=== PATIENT | female | born 1965 | race Caucasian/White ===

== ENCOUNTER 2016-09-30 10:53 | Emergency (ER) | payer OTHER ==
[2016-09-30 11:00] VITALS: BP 158/91; PULSE 66; TEMP 98; BMI 27.4
[2016-09-30 12:07] LABS: URINE APPEARANCE CLEAR; URINE BILIRUBIN NEGATIVE (NEGATIVE); URINE BLOOD NEGATIVE (NEGATIVE); URINE COLOR LTYELLOW; URINE GLUCOSE (UA) NEGATIVE (NEGATIVE); URINE KETONE NEGATIVE (NEGATIVE); URINE LEUK ESTERASE NEGATIVE (NEGATIVE); URINE NITRITE NEGATIVE (NEGATIVE); URINE PROTEIN NEGATIVE (NEGATIVE); URINE UROBILINOGEN NEGATIVE E.U./dl (0.2-1.0)
--- NOTE | 2016-09-30 12:25 | PDOC ---
History of Present Illness - General Chief Complaint: Headache Stated Complaint: EXPOSURE Time Seen by Provider: 09/30/16 11:30 History Source: Patient Exam Limitations: No Limitations - History of Present Illness Initial Comments: 09/30/16 12:20 CC intermit. COs of Headache, body aches, nasal congestion post possible pesticide exposure; daughter and son with similar symptoms; also notes lBP, Timing/Duration: intermittent, other (weeks) Severity: mild Associated Symptoms: reports: cough, fever/chills, headaches, malaise. denies: nausea/vomiting, rash, shortness of breath Past History - Past Medical History Allergies/Adverse Reactions: Allergies Allergy/AdvReac Type Severity Reaction Status Date / Time No Known Allergies Allergy Verified 09/30/16 10:57 Home Medications: Ambulatory Orders Thyroid [[place] Thyroid] 120 mg PO DAILY 09/30/16 Seizures: Yes Thyroid Disease: Yes - Surgical History Abdominal Surgery: Yes - Psycho/Social/Smoking Cessation Hx Anxiety: No Suicidal Ideation: No Smoking Status: Yes Smoking History: Never smoked Have you smoked in the past 12 months: No Number of Cigarettes Smoked Daily: 3 Hx Alcohol Use: No Drug/Substance Use Hx: No Substance Use Type: None Review of Systems - Review of Systems Constitutional: Yes: Malaise. No: Chills, Fever HEENTM: Yes: Nose Congestion Respiratory: No: Cough, Stridor, Wheezing Cardiac (ROS): No: Symptoms Reported ABD/GI: Yes: Nausea. No: Symptoms Reported, Diarrhea, Vomiting : No: Burning, Dysuria Musculoskeletal: Yes: Symptoms Reported Neurological: Yes: Headache. No: Symptoms reported, Numbness, Paresthesia, Tingling *Physical Exam - Vital Signs Last Vital Signs Temp Pulse Resp BP Pulse Ox 98 F 66 18 158/91 98 09/30/16 10:57 09/30/16 10:57 09/30/16 10:57 09/30/16 10:57 09/30/16 10:57 - Physical Exam General Appearance: Yes: Appropriately Dressed HEENT: positive: TMs Normal, Pharynx Normal, Nasal Congestion Neck: positive: Supple. negative: Rigid, Lymphadenopathy (R), Lymphadenopathy ( L) Respiratory/Chest: positive: Lungs Clear Cardiovascular: positive: Regular Rhythm, Regular Rate, Murmur ED Treatment Course - ADDITIONAL ORDERS Additional order review: Laboratory Results 09/30/16 11:59 Urine Color Ltyellow Urine Appearance Clear Urine pH 6.0 Ur Specific [place] 1.019 Urine Protein Negative Urine Glucose (UA) Negative Urine Ketones Negative Urine Blood Negative Urine Nitrite Negative Urine Bilirubin Negative Urine Urobilinogen Negative Ur Leukocyte Esterase Negative Urine HCG, Qual Negative Medical Decision Making - Medical Decision Making 09/30/16 12:23 spke with posions; who suggested no testing possible and referred to National pesticide hot line; will give to pt; also referred to LMd for HTN, has hx of same *DC/Admit/Observation/Transfer Diagnosis at time of Disposition: Malaise and fatigue - Discharge Dispostion Disposition: HOME Condition at time of disposition: Stable Admit: No - Patient Instructions Additional Instructions: please see local MD for elevated B/P; also contact poisons control as needed [phone]; also call pesticide hot line at
== END 2016-09-30 12:37 | disposition home or self-care (01) ==
LOC: SUPCPDRO 10:53 → JERFT 10:53
DX: R53.81 Other malaise (principal); I10 Essential (primary) hypertension; J30.89 Other allergic rhinitis
CPT/HCPCS: 81003; 84703; 99281-25

== ENCOUNTER 2017-01-25 16:14 | Emergency (ER) | payer OTHER ==
[2017-01-25 16:39] VITALS: BP 162/83; PULSE 100; TEMP 98.4; BMI 25.7
--- NOTE | 2017-01-25 17:54 | PDOC ---
History of Present Illness - General Chief Complaint: Non EmpBld/Body Flud Exposure Stated Complaint: TOXICATION Time Seen by Provider: 01/25/17 17:13 History Source: Patient Exam Limitations: No Limitations - History of Present Illness Initial Comments: 01/25/17 17:56 This is a 51yo woman with PMH HTN, hypothyroidism and seizures who presents today with multiple medical complaints including dizziness, nausea, SOB, vocal changes and alopecia. She states she has been having symptoms intermittently for approximately 4 years. 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 She states he has been poisoning her repeatedly by setting off pesticide fumigation bombs daily for 4 years until December 2016 when he started funneling pesticides into her apartment. In December she reports hearing a drilling sound in her apartment which she says was her super. She contacted the building load tallier at that time and was told "to mind my own business." She states the super has altered her cable and has tapped into her phone lines. She states others family members in her apartment have been exhibiting symptoms but have not had any evaluation. She reports she had contacted poison control and gave a list of pesticides used in her apartment and came today to have blood testing for 11 different organophosphate pesticides. She denies urinary incontinence, excessive salivation, excessive tearing, incontinence of stool or vomiting. All of her symptoms have resolved prior to evaluation. Pain- absent Occupation- homemaker Tobacco- denies ETOH- denies Illicits- denies Denies recent travel PMH:Mcgraw's palsy, HTN, hypothyroidism Timing/Duration: resolved prior to arrival Severity: mild Past History - Travel Traveled outside of the country in the last 30 days: No Close contact w/someone who was outside of country & ill: No - Past Medical History Allergies/Adverse Reactions: Allergies Allergy/AdvReac Type Severity Reaction Status Date / Time No Known Allergies Allergy Verified 01/25/17 16:31 Home Medications: Ambulatory Orders Thyroid [[place] Thyroid] 120 mg PO DAILY 09/30/16 Seizures: Yes Thyroid Disease: Yes - Surgical History Abdominal Surgery: Yes - Immunization History Immunization Up to Date: Yes - Psycho/Social/Smoking Cessation Hx Anxiety: No Suicidal Ideation: No Smoking Status: Yes Smoking History: Never smoked Have you smoked in the past 12 months: No Number of Cigarettes Smoked Daily: 3 Information on smoking cessation initiated: No Hx Alcohol Use: No Drug/Substance Use Hx: No Substance Use Type: None Review of Systems - Review of Systems Able to Perform ROS?: Yes Is the patient limited Romanian proficient: No Constitutional: Yes: See HPI HEENTM: No: Symptoms Reported Respiratory: Yes: See HPI Cardiac (ROS): No: Symptoms Reported ABD/GI: Yes: See HPI : No: Symptoms Reported Musculoskeletal: No: Symptoms Reported Integumentary: No: Symptoms Reported Neurological: Yes: Tremors *Physical Exam - Vital Signs Last Vital Signs Temp Pulse Resp BP Pulse Ox 98.4 F 100 H 20 162/83 100 01/25/17 16:15 01/25/17 16:15 01/25/17 16:15 01/25/17 16:15 01/25/17 16:15 - Physical Exam General Appearance: Yes: Appropriately Dressed. No: Apparent Distress HEENT: positive: EOMI, Normal ENT Inspection, Muffled/Hoarse voice (intermittent ) Neck: positive: Trachea midline, Supple. negative: Tender Respiratory/Chest: positive: Lungs Clear, Normal Breath Sounds. negative: Chest Tender, Respiratory Distress, Accessory Muscle Use Cardiovascular: positive: Regular Rhythm, S1, S2, Tachycardia. negative: Edema , JVD, Murmur Gastrointestinal/Abdominal: positive: Normal Bowel Sounds, Soft. negative: Tender, Organomegaly Musculoskeletal: positive: Normal Inspection. negative: CVA Tenderness Extremity: positive: Normal Capillary Refill, Normal Inspection, Normal Range of Motion Integumentary: positive: Normal Color, Dry, Warm Neurologic: positive: Fully Oriented, Alert, Normal Mood/Affect, Normal Response , Motor Strength 5/5, Abnormal Cranial NS (CNii-iv and vi-xii intact. Left sided bells present.) ED Treatment Course - LABORATORY CBC & Chemistry Diagram: 01/25/17 17:13 01/25/17 17:13 Medical Decision Making - Medical Decision Making 01/25/17 18:09 This is a 51yo woman with PMH HTN, hypothyroidism and seizures who presents today with multiple medical complaints including dizziness, nausea, SOB, vocal changes and alopecia. She states she has been having symptoms intermittently for approximately 4 years. 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 She states he has been poisoning her repeatedly by setting off pesticide fumigation bombs daily for 4 years until December 2016 when he started funneling pesticides into her apartment. In December she reports hearing a drilling sound in her apartment which she says was her super. She contacted the building load tallier at that time and was told "to mind my own business." She states the super has altered her cable and has tapped into her phone lines. She states others family members in her apartment have been exhibiting symptoms but have not had any evaluation. She reports she had contacted poison control and gave a list of pesticides used in her apartment and came today to have blood testing for 11 different organophosphate pesticides. She denies urinary incontinence, excessive salivation, excessive tearing, incontinence of stool or vomiting. All of her symptoms have resolved prior to evaluation. The patient takes [place] Thyroid natural supplement for her hypothyroidism. Has taken synthroid in the past but self d/c'd. She was evaluated here in September for similar complaint. Long discussion had with patient regarding possibility of acute undiagnosed mental illness. Patient is agreeable to have evaluation by psychiatry as an outpatient if lab testing is negative. DDX- hyperthyroidism vs ?delusional disorder? - CBC, CMP, TSH - UA - f/u with Dr. Ward 01/25/17 19:42 Lab testing notable for WBC-15.1. No s/s infection, likely stress reaction. All testing discussed with patient. agrees with plan. Will discharge home with psych f/u. *DC/Admit/Observation/Transfer Diagnosis at time of Disposition: Mcgraw palsy - Discharge Dispostion Admit: No - Referrals Referrals: Ashleigh Barrett MD [Primary Care Provider] - Kimberly Ward MD [Staff Physician] - - Patient Instructions Additional Instructions: Drink plenty of fluids. Keep windows open to allow fresh air into house. Make an appointment with Dr. Ward within 1 week. Return to ER for worsening symptoms or any other concerns. - Post Discharge Activity
[2017-01-25 18:11] LABS: BASOPHIL 0.3 % (0-2.0); MCH 29.6 pg (25.7-33.7); MCHC 33.4 g/dl (32.0-36.0); MEAN CELL VOLUME 88.5 fl (80-96); MEAN PLT VOLUME 8.5 fl (7.5-11.1); NEUTROPHILS 85.1 % (42.8-82.8); PLATELET COUNT 291 K/MM3 (134-434); RDW 13.8 % (11.6-15.6)
[2017-01-25 18:13] LABS: URINE APPEARANCE SLCLOUDY; URINE BILIRUBIN NEGATIVE (NEGATIVE); URINE BLOOD NEGATIVE (NEGATIVE); URINE COLOR DKYELLOW; URINE GLUCOSE (UA) NEGATIVE (NEGATIVE); URINE KETONE NEGATIVE (NEGATIVE); URINE LEUK ESTERASE NEGATIVE (NEGATIVE); URINE NITRITE NEGATIVE (NEGATIVE); URINE PROTEIN NEGATIVE (NEGATIVE); URINE UROBILINOGEN NEGATIVE mg/dL (0.2-1.0)
[2017-01-25 19:15] LABS: ALBUMIN 4.1 g/dl (3.4-5.0); ALK PHOS 69 U/L (45-117); ANION GAP 9 (8-16); BILIRUBIN,TOTAL 0.3 mg/dL (0.2-1.0); CO2 25 mmol/L (21-32); CREATININE 0.8 mg/dL (0.55-1.02); GLUCOSE,RANDOM 102 mg/dL (74-106); SGPT/ALT 16 U/L (12-78); TOT PROT 7.8 g/dl (6.4-8.2)
[2017-01-25 19:23] LABS: THYROID STIMULATING HORMONE 0.81 uIU/ml (0.358-3.74)
[2017-01-25 19:29] LABS: SGOT/AST < 3 U/L (15-37)
== END 2017-01-25 19:53 | disposition home or self-care (01) ==
LOC: JERFT 16:14
DX: G51.0 Bell's palsy (principal); I10 Essential (primary) hypertension; E03.9 Hypothyroidism, unspecified
CPT/HCPCS: 36415; 80053; 81003; 84443; 85025; 99281-25

== ENCOUNTER 2019-08-03 23:19 | Emergency (ER) | payer OTHER ==
[2019-08-03 23:25] VITALS: BP 115/86; PULSE 71; TEMP 97.9; BMI 27.4
--- NOTE | 2019-08-04 00:08 | PDOC ---
History of Present Illness - General Chief Complaint: Injury Stated Complaint: RT WRIST PAIN History Source: Patient Exam Limitations: No Limitations - History of Present Illness Initial Comments: 08/04/19 00:06 Patient is a 53 year old female with hypothyroid, c/s, left ear surg for Hearing loss c/o right hand and wrist pain since 1 week. States that she has a big dog who she took out side for exercise. The dog came running at her, she put her right hand out to block him from pushing her down when he ran into her hand, and hyperextended the wrist. States that over the week it got black and blue and she has had pain with movement. She did not seek out care at that time, thinking that her symptoms would go away. States that tonight she bumped the arm into the furniture and the pain got worse and so has come to the emergency room for evaluation. Pain is 8/10 sharp and worse with movement of the thumb. Patient is right-hand dominant. PMD: Dr. Jones PMHX: as above PSOCHX: neg etoh, drug, cig ALL: NKDA GENERAL/CONSTITUTIONAL: [No fever or chills. No weakness. No weight change.] HEAD, EYES, EARS, NOSE AND THROAT: [No change in vision. No ear pain or discharge. No sore throat.] CARDIOVASCULAR: [No chest pain or shortness of breath.] RESPIRATORY: [No cough, wheezing, or hemoptysis.] GASTROINTESTINAL: [No nausea, vomiting, diarrhea or constipation. No rectal bleeding.] GENITOURINARY: [No dysuria, frequency, or change in urination.] MUSCULOSKELETAL: [(+) joint or muscle swelling or pain. No neck or back pain.] SKIN AND BREASTS: [No rash or easy bruising.] NEUROLOGIC: [No headache, vertigo, loss of consciousness, or loss of sensation.] PSYCHIATRIC: [No depression or anxiety.] ENDOCRINE: [No increased thirst. No abnormal weight change.] HEMATOLOGIC/LYMPHATIC: [No anemia, easy bleeding, or history of blood clots.] ALLERGIC/IMMUNOLOGIC: [No hives or skin allergy. No latex allergy.] GENERAL: [The patient is awake, alert, and fully oriented, in no acute distress.] HEAD: [Normal with no signs of trauma.] EYES: [Pupils equal, round and reactive to light, extraocular movements intact, sclera anicteric, conjunctiva clear.] ENT: [Ears normal, nares patent, oropharynx clear without exudates. Moist mucous membranes.] NECK: [Normal range of motion, supple without lymphadenopathy, JVD, or masses.] LUNGS: [Breath sounds equal, clear to auscultation bilaterally. No wheezes, and no crackles.] HEART: [Regular rate and rhythm, normal S1 and S2 without murmur, rub.] ABDOMEN: [Soft, nontender, normoactive bowel sounds. No guarding, no rebound. No masses.] EXTREMITIES: [Decreased range of motion of the wrist and thumb right, tenderness in the anatomical snuffbox, mild swelling over the radial aspect of the wrist No clubbing or cyanosis. No cords, ] NEUROLOGICAL: [Cranial nerves II through XII grossly intact. Normal speech, normal gait.] PSYCH: [Normal mood, normal affect.] SKIN: [Warm, Dry, normal turgor, no rashes or lesions noted.] Past History - Past Medical History Allergies/Adverse Reactions: Allergies Allergy/AdvReac Type Severity Reaction Status Date / Time No Known Allergies Allergy Verified 08/03/19 23:22 Home Medications: Ambulatory Orders Thyroid [[place] Thyroid] 120 mg PO DAILY 09/30/16 COPD: No Seizures: Yes Thyroid Disease: Yes Other medical history: BELLS PALSY, HYPOTHYROID - Surgical History Abdominal Surgery: Yes - Immunization History Immunization Up to Date: Yes - Psycho Social/Smoking Cessation Hx Smoking Status: Yes Smoking History: Never smoked Have you smoked in the past 12 months: No Number of Cigarettes Smoked Daily: 3 Hx Alcohol Use: No Drug/Substance Use Hx: No Substance Use Type: None *Physical Exam - Vital Signs Last Vital Signs Temp Pulse Resp BP Pulse Ox 97.9 F 71 20 115/86 100 08/03/19 23:23 08/03/19 23:23 08/03/19 23:23 08/03/19 23:23 08/03/19 23:23 Medical Decision Making - Medical Decision Making 08/04/19 00:06 Patient is a 53 year old female with hypothyroid, c/s, left ear surg for Hearing loss c/o right hand and wrist pain since 1 week. States that she has a big dog who she took out side for exercise. The dog came running at her, she put her right hand out to block him from pushing her down when he ran into her hand, and hyperextended the wrist. States that over the week it got black and blue and she has had pain with movement. She did not seek out care at that time, veronica callahan that her symptoms would go away. States that tonight she bumped the arm into the furniture and the pain got worse and so has come to the emergency room for evaluation. Pain is 8/10 sharp and worse with movement of the thumb. Patient is right-hand dominant. Symptoms consistent with wrist sprain/strain rule out fracture. X-rays are negative no fracture seen. Since patient is tender in the anatomical snuffbox will place a thumb spica splint. Ortho referral. I discussed the physical exam findings, ancillary test results and final diagnoses with the patient. I answered all of the patient's questions. The patient was satisfied with the care received and felt comfortable with the discharge plan and treatment plan. The Patient agrees to follow up with the primary care physician within 24-72 hours. Discharge - Discharge Information Problems reviewed: Yes Clinical Impression/Diagnosis: Wrist strain Qualifiers: Encounter type: initial encounter Laterality: right Qualified Code(s): S66.911A - Strain of unspecified muscle, fascia and tendon at wrist and hand level, right hand, initial encounter Condition: Stable Disposition: HOME - Follow up/Referral Referrals: Faviola Jones MD [Primary Care Provider] - Jarocho Mahoney DO [Staff Physician] - Kee Sawyer MD [Staff Physician] - Zach Velasquez MD [Staff Physician] - - Patient Discharge Instructions Patient Printed Discharge Instructions: DI for Wrist Strain Additional Instructions: Your Discharge Instructions: You must call primary care physician within 24 hours to arrange follow-up. Return to the Emergency Department with any new, persistent or worsening symptoms, for fever, chills, SOB, dizziness or any other concerning changes that may occur. You must follow-up with orthopedist. We have given you a couple names call to see who takes your insurance. - Post Discharge Activity
[2019-08-04] MEDS ORDERED: KETOROLAC TROMETHAMINE 30 MG/1 ML VIAL IM ONE (00:41)
[2019-08-04] MEDS ORDERED: KETOROLAC TROMETHAMINE 30 MG/1 ML VIAL ONE (01:05)
== END 2019-08-04 01:20 | disposition home or self-care (01) ==
LOC: JER 23:19
PROC: 3E0233Z Introduction of Anti-inflammatory into Muscle, Percutaneous Approach (ICD-10-PCS; principal; 2019-08-03)
DX: S66.811A Strain of other specified muscles, fascia and tendons at wrist and hand level, right hand, initial encounter (principal); W18.39XA Other fall on same level, initial encounter; W22.03XA Walked into furniture, initial encounter; Y93.K1 Activity, walking an animal; Y92.89 Other specified places as the place of occurrence of the external cause; Y99.8 Other external cause status; E03.9 Hypothyroidism, unspecified; Z86.69 Personal history of other diseases of the nervous system and sense organs
CPT/HCPCS: 73090-TC-RT-FY; 73130-TC-RT-FY; 96372; 99284-25

== ENCOUNTER 2021-02-17 14:24 | Emergency (ER) | payer OTHER ==
[2021-02-17 14:42] VITALS: BP 146/83; PULSE 80; TEMP 98.3; BMI 22.6
== END 2021-02-17 15:38 | disposition home or self-care (01) ==
LOC: JERFT 14:24
DX: M25.531 Pain in right wrist (principal)
CPT/HCPCS: 73110-TC-RT-FY; 99284-25

== ENCOUNTER 2021-05-18 16:48 | Emergency (ER) | payer OTHER ==
[2021-05-18 17:13] VITALS: BP 150/83; PULSE 77; TEMP 98.2; BMI 24.4
[2021-05-18] MEDS ORDERED: KETOROLAC TROMETHAMINE 30 MG/1 ML VIAL IM ONE (18:17)
[2021-05-18] MEDS ORDERED: CYCLOBENZAPRINE HCL 10 MG TABLET (FP) PO ONE (18:17)
[2021-05-18] MEDS ORDERED: CYCLOBENZAPRINE HCL 10 MG TABLET (FP) ONE (18:21)
[2021-05-18] MEDS ORDERED: KETOROLAC TROMETHAMINE 30 MG/1 ML VIAL ONE (18:21)
== END 2021-05-18 22:24 | disposition home or self-care (01) ==
LOC: JERFT 16:48
PROC: 3E0233Z Introduction of Anti-inflammatory into Muscle, Percutaneous Approach (ICD-10-PCS; principal; 2021-05-18)
DX: M54.50 Low back pain, unspecified (principal); M54.6 Pain in thoracic spine; V43.53XA Car driver injured in collision with pick-up truck in traffic accident, initial encounter
CPT/HCPCS: 72050-TC-FY; 72100-TC-FY; 99284-25

== ENCOUNTER 2021-06-10 18:10 | Inpatient (IN) | payer OTHER ==
[2021-06-10 18:30] VITALS: TEMP 98.1; BMI 28.3
[2021-06-10 20:49] LABS: INR 1.3 (0.83-1.09)
[2021-06-10 21:17] LABS: URINE APPEARANCE CLEAR; URINE BILIRUBIN NEGATIVE (NEGATIVE); URINE COLOR YELLOW; URINE GLUCOSE (UA) NEGATIVE (NEGATIVE); URINE KETONE NEGATIVE (NEGATIVE); URINE LEUK ESTERASE NEGATIVE (NEGATIVE); URINE NITRITE NEGATIVE (NEGATIVE); URINE PROTEIN NEGATIVE (NEGATIVE)
[2021-06-10 21:21] LABS: ALBUMIN 4.4 g/dl (3.4-5.0); BILIRUBIN,TOTAL 0.5 mg/dL (0.2-1); BLOOD UREA NITROGEN 22.2 mg/dL (7-18); CALCIUM 9.2 mg/dL (8.5-10.1); CREATININE 0.7 mg/dL (0.55-1.3); TOT PROT 8.4 g/dl (6.4-8.2)
[2021-06-10 21:24] LABS: BASO % 0.3 % (0-2.0); EOS % 0.7 % (0-4.5); HEMATOCRIT 42.8 % (32.4-45.2); HEMOGLOBIN 14.4 GM/dL (10.7-15.3); LYMPH % 43.5 % (8-40); MCH 29.5 pg (25.7-33.7); MCHC 33.7 g/dl (32.0-36.0); MEAN CELL VOLUME 87.7 fl (80-96); MEAN PLT VOLUME 8.1 fl (7.5-11.1); MONO % 5.4 % (3.8-10.2); NEUT % 50.1 % (42.8-82.8); PLATELET COUNT 255 10^3/uL (134-434); RBC 4.88 M/mm3 (3.60-5.2); RDW 14.3 % (11.6-15.6); WHITE BLOOD COUNT 6.7 K/mm3 (4.0-10.0)
[2021-06-10 21:28] LABS: COCAINE, UR NEGATIVE (NEGATIVE); OPIATES, URI NEGATIVE (NEGATIVE); URINE BARBITURATES NEGATIVE (NEGATIVE)
[2021-06-10] MEDS ORDERED: POTASSIUM CHLORIDE ORAL LIQUID 20 MEQ/15 ML PO ONE (21:29)
[2021-06-10 21:32] LABS: PHENCYCLIDINE,URINE NEGATIVE (NEGATIVE)
[2021-06-10 21:53] LABS: METHADONE, UR NEGATIVE (NEGATIVE); URINE AMPHETAMINES NEGATIVE (NEGATIVE); URINE BENZODIAZEPINES NEGATIVE (NEGATIVE)
[2021-06-10] MEDS ORDERED: POTASSIUM CHLORIDE ORAL LIQUID 20 MEQ/15 ML ONE (22:04)
[2021-06-10] MEDS ORDERED: ONDANSETRON 4 MG/2 ML VIAL IVPUSH ONE (22:10)
[2021-06-10] MEDS ORDERED: SODIUM CHLORIDE 0.9% 500 ML INFUS.BAG IV ONE (22:11)
[2021-06-10] MEDS ORDERED: ONDANSETRON 4 MG/2 ML VIAL ONE (22:12)
[2021-06-11] MEDS ORDERED: SODIUM CHLORIDE 1,000 ML IV SCH (01:00)
[2021-06-11 06:56] VITALS: BP 122/61; PULSE 62
[2021-06-11] MEDS ORDERED: THYROID 60 MG TABLET PO SCH (07:00)
[2021-06-11] MEDS ORDERED: ENOXAPARIN NA (PORCINE) 40 MG/0.4 ML DISP.SYRIN SQ ONE (09:17)
[2021-06-11] MEDS ORDERED: ENOXAPARIN NA (PORCINE) 40 MG/0.4 ML DISP.SYRIN SQ SCH (10:00)
[2021-06-11 11:09] LABS: BASO % 0.6 % (0-2.0); EOS % 1.2 % (0-4.5); HEMATOCRIT 37.1 % (32.4-45.2); HEMOGLOBIN 12.6 GM/dL (10.7-15.3); LYMPH % 49.9 % (8-40); MCH 29.9 pg (25.7-33.7); MCHC 33.9 g/dl (32.0-36.0); MEAN CELL VOLUME 88.2 fl (80-96); MEAN PLT VOLUME 8.3 fl (7.5-11.1); MONO % 7.4 % (3.8-10.2); NEUT % 40.9 % (42.8-82.8); PLATELET COUNT 222 10^3/uL (134-434); RBC 4.21 M/mm3 (3.60-5.2); RDW 14.1 % (11.6-15.6); WHITE BLOOD COUNT 5.7 K/mm3 (4.0-10.0)
[2021-06-11 11:16] LABS: CALCIUM 8.3 mg/dL (8.5-10.1)
[2021-06-11 11:20] LABS: CREATININE 0.7 mg/dL (0.55-1.3)
[2021-06-11 11:33] LABS: BILIRUBIN,TOTAL 0.3 mg/dL (0.2-1)
[2021-06-11 11:34] LABS: TOT PROT 6.7 g/dl (6.4-8.2)
[2021-06-11 11:35] LABS: ALBUMIN 3.5 g/dl (3.4-5.0)
[2021-06-11] MEDS ORDERED: POTASSIUM CHLORIDE TABS 20 MEQ TABLET.ER (FP) PO ONE (14:06)
[2021-06-11 14:39] LABS: MAGNESIUM 2.2 mg/dL (1.8-2.4)
[2021-08-01 11:05] LABS: LEAD/CREAT RATIO 1; MERCURY/CREAT RATIO 1
== END 2021-06-11 17:08 | disposition left against medical advice (07) | DRG 201 ==
LOC: JER 18:10 → MERGE 22:43 → OBSVTOIN 22:43 → JERBED 22:43
PROVIDERS: ADMIT Hospitalist
DX: I47.2 Ventricular tachycardia (principal); F22 Delusional disorders; I10 Essential (primary) hypertension; E03.9 Hypothyroidism, unspecified; R94.31 Abnormal electrocardiogram [ECG] [EKG]; E87.6 Hypokalemia; E83.51 Hypocalcemia; F12.90 Cannabis use, unspecified, uncomplicated
CPT/HCPCS: 36415; 71046-TC-FY; 80053; 80307; 81003; 82175; 82300; 82550; 82607; 82746; 83018; 83655; 83690; 83735; 83825; 84436; 84439; 84443; 84484; 85025; 85610; 93005; 93010; 99285-25; C9803-CS; U0003; U0005

== ENCOUNTER 2021-07-12 06:05 | Emergency (ER) | payer OTHER ==
[2021-07-12 06:18] VITALS: TEMP 97.6; BMI 23.9
[2021-07-12 08:08] VITALS: BP 154/95; PULSE 72
[2021-07-12] MEDS ORDERED: FAMOTIDINE 20 MG/50 ML IVPB 20 MG/50 ML MG IVPB ONE ×2 (08:10→08:23)
[2021-07-12] MEDS ORDERED: MAG HYDROX/AL HYDROX/SIMETH -MYLANTA- ORAL SUSPENSION PO ONE (08:10)
[2021-07-12] MEDS ORDERED: SODIUM CHLORIDE 0.9% 500 ML INFUS.BAG IV ONE (08:17)
[2021-07-12] MEDS ORDERED: MAG HYDROX/AL HYDROX/SIMETH 30 ML UNIT-DOSE CUP ONE (08:22)
[2021-07-12 08:57] LABS: BASO % 0.3 % (0-2.0); EOS % 1.4 % (0-4.5); HEMATOCRIT 38.8 % (32.4-45.2); HEMOGLOBIN 13.3 GM/dL (10.7-15.3); LYMPH % 44.6 % (8-40); MCH 29.9 pg (25.7-33.7); MCHC 34.3 g/dl (32.0-36.0); MEAN CELL VOLUME 87.3 fl (80-96); MEAN PLT VOLUME 7.8 fl (7.5-11.1); NEUT % 47.7 % (42.8-82.8); PLATELET COUNT 258 10^3/uL (134-434); RBC 4.44 M/mm3 (3.60-5.2); RDW 13.6 % (11.6-15.6); WHITE BLOOD COUNT 5.4 K/mm3 (4.0-10.0)
[2021-07-12 09:19] LABS: CALCIUM 8.9 mg/dL (8.5-10.1); CHLORIDE 105 mmol/L (98-107); SODIUM 139 mmol/L (136-145)
[2021-07-12 09:21] LABS: ALBUMIN 3.8 g/dl (3.4-5.0); ANION GAP 6 MMOL/L (8-16); BLOOD UREA NITROGEN 16.8 mg/dL (7-18); CO2 27 mmol/L (21-32); GLUCOSE,RANDOM 108 mg/dL (74-106); LIPASE 152 U/L (73-393)
[2021-07-12 09:23] LABS: CREATININE 0.6 mg/dL (0.55-1.3); SGOT/AST 11 U/L (15-37); SGPT/ALT 15 U/L (13-61)
[2021-07-12 09:24] LABS: BILIRUBIN,TOTAL 0.2 mg/dL (0.2-1)
[2021-07-12 09:25] LABS: TOT PROT 7.3 g/dl (6.4-8.2)
[2021-07-12 09:27] LABS: ALK PHOS 68 U/L (45-117)
[2021-07-12 09:28] LABS: EPI CELLS 18 /uL (0-25.1); HYALINE CASTS 0 /uL (0-3.1); URINE APPEARANCE CLEAR; URINE BACTERIA 425 /uL (0-1359); URINE BILIRUBIN NEGATIVE (NEGATIVE); URINE COLOR YELLOW; URINE GLUCOSE (UA) NEGATIVE (NEGATIVE); URINE KETONE NEGATIVE (NEGATIVE); URINE LEUK ESTERASE 2+ (NEGATIVE); URINE NITRITE NEGATIVE (NEGATIVE); URINE PROTEIN NEGATIVE (NEGATIVE); URINE RBC 12 /uL (0-23.9); URINE UROBILINOGEN 0.2 mg/dL (0.2-1.0); URINE WBC 36 /uL (0-25.8)
== END 2021-07-12 12:00 | disposition home or self-care (01) ==
LOC: JER 06:05
PROC: 3E033NZ Introduction of Analgesics, Hypnotics, Sedatives into Peripheral Vein, Percutaneous Approach (ICD-10-PCS; principal; 2021-07-12)
DX: R10.84 Generalized abdominal pain (principal); R19.7 Diarrhea, unspecified
CPT/HCPCS: 36415; 71046-TC-FY; 80053; 81003; 82550; 83690; 84484; 85025; 87086; 87807; 93005; 93010; 96365; 99284-25; C9803; U0003; U0005

== ENCOUNTER 2021-09-15 08:23 | Emergency (ER) | payer OTHER ==
[2021-09-15 08:35] VITALS: BP 134/76; PULSE 74; TEMP 97.6; BMI 24.7
[2021-09-15 09:59] LABS: BASO % 0.3 % (0-2.0); HEMATOCRIT 39.5 % (32.4-45.2); HEMOGLOBIN 13.1 GM/dL (10.7-15.3); LYMPH % 35.9 % (8-40); MCHC 33.1 g/dl (32.0-36.0); MEAN CELL VOLUME 87.7 fl (80-96); MEAN PLT VOLUME 8.2 fl (7.5-11.1); MONO % 5.9 % (3.8-10.2); NEUT % 56.9 % (42.8-82.8); PLATELET COUNT 262 10^3/uL (134-434); RDW 13.6 % (11.6-15.6); WHITE BLOOD COUNT 5.5 K/mm3 (4.0-10.0)
[2021-09-15 10:28] LABS: ALBUMIN 3.8 g/dl (3.4-5.0); BLOOD UREA NITROGEN 15.5 mg/dL (7-18); CALCIUM 9.3 mg/dL (8.5-10.1)
[2021-09-15 10:31] LABS: CREATININE 0.7 mg/dL (0.55-1.3)
[2021-09-15 10:33] LABS: BILIRUBIN,TOTAL 0.4 mg/dL (0.2-1); TOT PROT 7.5 g/dl (6.4-8.2)
[2021-09-15 12:01] LABS: URINE APPEARANCE CLEAR; URINE BILIRUBIN NEGATIVE (NEGATIVE); URINE COLOR YELLOW; URINE GLUCOSE (UA) NEGATIVE (NEGATIVE); URINE KETONE NEGATIVE (NEGATIVE); URINE LEUK ESTERASE NEGATIVE (NEGATIVE); URINE NITRITE NEGATIVE (NEGATIVE); URINE PROTEIN NEGATIVE (NEGATIVE); URINE UROBILINOGEN 0.2 mg/dL (0.2-1.0)
[2021-09-15 12:20] LABS: COCAINE, UR NEGATIVE (NEGATIVE); OPIATES, URI NEGATIVE (NEGATIVE)
[2021-09-15 12:21] LABS: METHADONE, UR NEGATIVE (NEGATIVE); PHENCYCLIDINE,URINE NEGATIVE (NEGATIVE); URINE BARBITURATES NEGATIVE (NEGATIVE); URINE BENZODIAZEPINES NEGATIVE (NEGATIVE)
[2021-09-15 12:27] LABS: URINE AMPHETAMINES NEGATIVE (NEGATIVE)
== END 2021-09-15 11:49 | disposition home or self-care (01) ==
LOC: JER 08:23
DX: F41.9 Anxiety disorder, unspecified (principal)
CPT/HCPCS: 36415; 80053; 80307; 81003; 82550; 84443; 85025; 87086; 93005; 93010; 99284-25

== ENCOUNTER 2022-02-23 11:03 | Emergency (ER) | payer OTHER ==
[2022-02-23 11:26] VITALS: TEMP 98; BMI 26.5
[2022-02-23] MEDS ORDERED: SODIUM CHLORIDE 0.9% 500 ML INFUS.BAG IV ONE (12:36)
[2022-02-23] MEDS ORDERED: FAMOTIDINE 20 MG/50 ML IVPB 20 MG/50 ML MG IVPB ONE (12:36)
[2022-02-23] MEDS ORDERED: MAG HYDROX/AL HYDROX/SIMETH 30 ML UNIT-DOSE CUP PO ONE (12:36)
[2022-02-23] MEDS ORDERED: MAG HYDROX/AL HYDROX/SIMETH 30 ML UNIT-DOSE CUP ONE (13:49)
[2022-02-23] MEDS ORDERED: FAMOTIDINE 10 MG/ML VIAL IVPB ONE (13:50)
[2022-02-23 15:07] LABS: URINE APPEARANCE CLEAR; URINE BILIRUBIN NEGATIVE (NEGATIVE); URINE COLOR YELLOW; URINE GLUCOSE (UA) NEGATIVE (NEGATIVE); URINE KETONE NEGATIVE (NEGATIVE); URINE LEUK ESTERASE NEGATIVE (NEGATIVE); URINE NITRITE NEGATIVE (NEGATIVE); URINE PROTEIN NEGATIVE (NEGATIVE); URINE UROBILINOGEN 0.2 mg/dL (0.2-1.0)
[2022-02-23 15:55] LABS: BASO % 0.4 % (0-2.0); EOS % 0.4 % (0-4.5); HEMATOCRIT 42.4 % (32.4-45.2); HEMOGLOBIN 14.5 GM/dL (10.7-15.3); LYMPH % 23.2 % (8-40); MCH 30.5 pg (25.7-33.7); MCHC 34.1 g/dl (32.0-36.0); MEAN CELL VOLUME 89.4 fl (80-96); MEAN PLT VOLUME 9.6 fl (7.5-11.1); MONO % 4.4 % (3.8-10.2); NEUT % 71.6 % (42.8-82.8); PLATELET COUNT 256 10^3/uL (134-434); RBC 4.74 M/mm3 (3.60-5.2); WHITE BLOOD COUNT 8.6 K/mm3 (4.0-10.0)
[2022-02-23 16:01] LABS: INR 1.21 (0.83-1.09)
[2022-02-23 16:03] LABS: ACTIVATED PTT 34.1 SECONDS (25.2-36.5)
[2022-02-23 16:23] LABS: CHLORIDE 104 mmol/L (98-107); SODIUM 135 mmol/L (136-145)
[2022-02-23 16:26] LABS: ALBUMIN 4.1 g/dl (3.4-5.0); BLOOD UREA NITROGEN 15.2 mg/dL (7-18); CALCIUM 8.9 mg/dL (8.5-10.1); CO2 24 mmol/L (21-32); GLUCOSE,RANDOM 89 mg/dL (74-106); LIPASE 78 U/L (73-393)
[2022-02-23 16:29] LABS: CREATININE 0.7 mg/dL (0.55-1.3)
[2022-02-23 16:30] LABS: BILIRUBIN,TOTAL 0.5 mg/dL (0.2-1)
[2022-02-23 16:31] LABS: TOT PROT 8.8 g/dl (6.4-8.2)
[2022-02-23 16:32] LABS: ALK PHOS 81 U/L (45-117)
[2022-02-23 16:48] LABS: ANION GAP 6 MMOL/L (8-16); SGOT/AST 74 U/L (15-37); SGPT/ALT 24 U/L (13-61)
[2022-02-23] MEDS ORDERED: ASPIRIN 325 MG TABLET PO ONE (18:16)
[2022-02-23] MEDS ORDERED: ASPIRIN 81 MG CHEWABLE TABLETS PO ONE (18:23)
[2022-02-23] MEDS ORDERED: ASPIRIN 325 MG TABLET ONE (18:35)
[2022-02-23 20:34] VITALS: BP 150/89; PULSE 97; RESP 20
== END 2022-02-23 21:13 | disposition left against medical advice (07) ==
LOC: JER 11:03
PROC: 3E033NZ Introduction of Analgesics, Hypnotics, Sedatives into Peripheral Vein, Percutaneous Approach (ICD-10-PCS; principal; 2022-02-23)
DX: R79.1 Abnormal coagulation profile (principal); R07.9 Chest pain, unspecified
CPT/HCPCS: 36415; 71046-TC-FY; 80053; 80307; 81003; 83690; 84132; 84439; 84443; 84484; 85025; 85610; 85730; 93005; 93010; 99284-25; C9803-CS; U0003; U0005

== ENCOUNTER 2022-04-22 10:37 | Emergency (ER) | payer OTHER ==
[2022-04-22 10:45] VITALS: TEMP 97.9; BMI 27.8
[2022-04-22] MEDS ORDERED: MAG HYDROX/AL HYDROX/SIMETH -MYLANTA- ORAL SUSPENSION PO ONE (11:25)
[2022-04-22] MEDS ORDERED: FAMOTIDINE 20 MG/50 ML IVPB 20 MG/50 ML MG IVPB ONE ×2 (11:25→11:30)
[2022-04-22] MEDS ORDERED: MAG HYDROX/AL HYDROX/SIMETH 30 ML UNIT-DOSE CUP ONE (11:30)
[2022-04-22 12:03] LABS: BASO % 0.5 % (0-2.0); EOS % 0.6 % (0-4.5); HEMATOCRIT 40.9 % (32.4-45.2); HEMOGLOBIN 13.9 GM/dL (10.7-15.3); LYMPH % 26.1 % (8-40); MCH 30.2 pg (25.7-33.7); MEAN CELL VOLUME 88.7 fl (80-96); MEAN PLT VOLUME 8.1 fl (7.5-11.1); MONO % 4.1 % (3.8-10.2); NEUT % 68.7 % (42.8-82.8); PLATELET COUNT 257 10^3/uL (134-434); RBC 4.61 M/mm3 (3.60-5.2); RDW 13.6 % (11.6-15.6); WHITE BLOOD COUNT 8.3 K/mm3 (4.0-10.0)
[2022-04-22 12:22] LABS: CHLORIDE 108 mmol/L (98-107); SODIUM 143 mmol/L (136-145)
[2022-04-22 12:24] LABS: CALCIUM 9.3 mg/dL (8.5-10.1)
[2022-04-22 12:25] LABS: ALBUMIN 4.3 g/dl (3.4-5.0); ANION GAP 7 MMOL/L (8-16); BLOOD UREA NITROGEN 13.8 mg/dL (7-18); CO2 29 mmol/L (21-32); GLUCOSE,RANDOM 106 mg/dL (74-106); LIPASE 111 U/L (73-393)
[2022-04-22 12:28] LABS: CREATININE 0.8 mg/dL (0.55-1.3); SGOT/AST 15 U/L (15-37); SGPT/ALT 27 U/L (13-61)
[2022-04-22 12:30] LABS: BILIRUBIN,TOTAL 0.4 mg/dL (0.2-1)
[2022-04-22 12:31] LABS: ALK PHOS 84 U/L (45-117)
[2022-04-22 13:56] LABS: PH,URINE 6.5 (5.0-8.0); URINE APPEARANCE CLEAR; URINE BILIRUBIN NEGATIVE (NEGATIVE); URINE COLOR YELLOW; URINE GLUCOSE (UA) NEGATIVE (NEGATIVE); URINE KETONE NEGATIVE (NEGATIVE); URINE LEUK ESTERASE NEGATIVE (NEGATIVE); URINE NITRITE NEGATIVE (NEGATIVE); URINE PROTEIN NEGATIVE (NEGATIVE); URINE UROBILINOGEN 0.2 mg/dL (0.2-1.0)
[2022-04-22 15:22] VITALS: BP 122/78; PULSE 78; RESP 19
== END 2022-04-22 15:21 | disposition home or self-care (01) ==
LOC: JER 10:37
PROC: 3E033GC Introduction of Other Therapeutic Substance into Peripheral Vein, Percutaneous Approach (ICD-10-PCS; principal; 2022-04-22)
DX: K21.9 Gastro-esophageal reflux disease without esophagitis (principal)
CPT/HCPCS: 36415; 80053; 81003; 83690; 84484; 85025; 93005; 93010; 99284-25

== ENCOUNTER 2022-05-11 18:53 | Emergency (ER) | payer OTHER ==
[2022-05-11 19:51] VITALS: BP 138/69; PULSE 72; RESP 20; TEMP 97.9; BMI 26.9
[2022-05-11] MEDS ORDERED: ACETAMINOPHEN 325 MG TABLET (FP) PO ONE (20:38)
[2022-05-11] MEDS ORDERED: ACETAMINOPHEN 325 MG TABLET (FP) ONE (20:40)
== END 2022-05-11 22:16 | disposition home or self-care (01) ==
LOC: JER 18:53 → JERFT 18:53
DX: R51.9 Headache, unspecified (principal); M54.2 Cervicalgia; M54.50 Low back pain, unspecified; V43.52XA Car driver injured in collision with other type car in traffic accident, initial encounter
CPT/HCPCS: 70450-TC; 72125-TC; 99284-25